=== PATIENT | female | born 1950 | race Hispanic/Latino ===

== ENCOUNTER → 2020-04-07 | Outpatient (CLI) | payer MEDICARE ==
[~2020-04-07] MED LIST: ASPIRIN81 MG PO; CALCIUM + VITA1 EACH PO; LISINOPRIL; LOSARTAN POTAS100 MG PO; LOSARTAN-HCTZ1 EAC2 PO
== END ==
LOC: NM 14:56
PROVIDERS: ATTEND Surgery
DX: Z01.818 Encounter for other preprocedural examination (principal); C50.912 Malignant neoplasm of unspecified site of left female breast
CPT/HCPCS: 78195; A9541

== ENCOUNTER 2020-04-08 05:51 | Observation (INO) | payer MEDICARE ==
[2020-04-05 08:57] LABS: BASOPHILS # (AUTO) 0.1 (0.0-0.1); BASOPHILS % 0.7 % (0.0-1.0); EOSINOPHILS # (AUTO) 0.2 (0.0-0.4); HEMATOCRIT 40.1 % (34.2-44.1); HEMOGLOBIN 13.2 g/dL (12.0-16.0); LYMPHOCYTES # (AUTO) 1.9 (1.0-3.2); LYMPHOCYTES % 27.5 % (18.0-39.1); MEAN CORPUSCULAR HEMOGLOBIN 30.6 pg (28-32); MEAN CORPUSCULAR HGB CONC 32.9 g/dL (31-35); MONOCYTES # (AUTO) 0.7 (0.2-0.8); MONOCYTES % 9.9 % (4.4-11.3); NEUTROPHILS # (AUTO) 4.1 (2.1-6.9); NEUTROPHILS % 58.6 % (38.7-80.0); PLATELET COUNT 274 x10e3/uL (140-360); RED BLOOD COUNT 4.31 x10e6/uL (3.6-5.1); RED CELL DISTRIBUTION WIDTH 12.9 % (11.7-14.4)
[2020-04-05 09:22] LABS: ANION GAP 12.4 mmol/L (8-16); BLOOD UREA NITROGEN 11 mg/dL (7-26); BUN/CREATININE RATIO 14 (6-25); CALCIUM 9.2 mg/dL (8.4-10.2); CARBON DIOXIDE 28 mmol/L (22-29); CHLORIDE 102 mmol/L (98-107); CREATININE, SERUM 0.76 mg/dL (0.57-1.11); EST GLOMERULAR FILTRATION RATE > 60 ML/MIN (60-); GLUCOSE 87 mg/dL (74-118); POTASSIUM 3.4 mmol/L (3.5-5.1); SODIUM 139 mmol/L (136-145)
[~2020-04-08] VITALS: Ht 30.5 cm; Wt 72.6 kg
[2020-04-08] MEDS ORDERED: BUPIVACAINE 0.25%/EPI 30ML SDV INJ ONE (07:25)
[2020-04-08] MEDS ORDERED: NEOSTIGMINE 1 MG/ML 10ML VIAL ONE (07:25)
[2020-04-08] MEDS ORDERED: VANCOMYCIN HCL 1 GM VIAL ONE (08:52)
[2020-04-08] MEDS ORDERED: ONDANSETRON HCL INJ 2MG/ML 2ML 2 MG/ML VIAL IV PRN (12:15)
[2020-04-08] MEDS ORDERED: HYDROCODONE/APAP 7.5MG-325MG 1 EA TAB PO PRN (12:15)
[2020-04-08] MEDS ORDERED: ONDANSETRON HCL INJ 2MG/ML 2ML 2 MG/ML VIAL ONE (12:47)
[2020-04-08] MEDS ORDERED: EPHEDRINE SULFATE INJ 50 MG/ML VIAL ONE (12:47)
[2020-04-08] MEDS ORDERED: SUCCINYLCHOLINE CHLORIDE 20 MG/ML 10ML VIAL ONE (12:47)
[2020-04-08] MEDS ORDERED: DEXAMETHASONE SOD PHOS INJ 4 MG/ML VIAL ONE (12:47)
[2020-04-08] MEDS ORDERED: LIDOCAINE HCL 2% LOCAL INJ 5 ML SDV VIAL INJ ONE (12:47)
[2020-04-08] MEDS ORDERED: PROPOFOL IV EMULSION 10 MG/ML 20 ML VIAL ONE (12:47)
[2020-04-08] MEDS ORDERED: SEVOFLURANE INHAL SOLN 250 ML PEN BTL ONE (12:47)
[2020-04-08 13:00] VITALS: BP 114/57
[2020-04-08 13:30] VITALS: BP 114/57
[2020-04-08] MEDS: DEXTROSE 5%/LACTATED RINGERS 1,000 ML IV SCH ×2 (15:00→23:37)
[2020-04-08 16:17] VITALS: BP 119/51
[2020-04-08] MEDS: HYDROMORPHONE 1MG/1ML INJ IV PRN ×2 (16:19→23:39)
[2020-04-08] MEDS: CEFAZOLIN SOD 1 GM/NS 50ML 50 ML IV SCH ×2 (17:35→23:37)
[2020-04-08 20:00] VITALS: BP 115/41
[2020-04-08 20:42] VITALS: BP 115/41
[2020-04-09] VITALS: BP 100/70
[2020-04-09 04:00] VITALS: BP 101/62
[2020-04-09 04:47] LABS: BASOPHILS % 0.2 % (0.0-1.0); EOSINOPHILS % 0.1 % (0.0-6.0); HEMATOCRIT 30.7 % (34.2-44.1); HEMOGLOBIN 10.4 g/dL (12.0-16.0); LYMPHOCYTES % 12.4 % (18.0-39.1); MEAN CORPUSCULAR HEMOGLOBIN 31.1 pg (28-32); MEAN CORPUSCULAR HGB CONC 33.9 g/dL (31-35); MEAN CORPUSCULAR VOLUME 91.9 fL (81-99); MONOCYTES # (AUTO) 1.7 (0.2-0.8); MONOCYTES % 10.5 % (4.4-11.3); NEUTROPHILS # (AUTO) 12.2 (2.1-6.9); NEUTROPHILS % 76.2 % (38.7-80.0); PLATELET COUNT 211 x10e3/uL (140-360); RED BLOOD COUNT 3.34 x10e6/uL (3.6-5.1); RED CELL DISTRIBUTION WIDTH 12.9 % (11.7-14.4)
[2020-04-09] MEDS: CEFAZOLIN SOD 1 GM/NS 50ML 50 ML IV SCH ×3 (05:00→16:03)
[2020-04-09 08:17] VITALS: BP 118/56
[2020-04-09 08:34] VITALS: BP 118/56
[2020-04-09] MEDS: DEXTROSE 5%/LACTATED RINGERS 1,000 ML IV SCH (08:59)
[2020-04-09 12:12] VITALS: BP 123/55
[2020-04-09 16:31] VITALS: BP 110/50
== END 2020-04-09 17:15 | disposition home or self-care (01) ==
LOC: OR 05:51 → PACU V 12:03 → MED/SURG 13:01
PROVIDERS: ADMIT Surgery; ATTEND Surgery
DX: C50.012 Malignant neoplasm of nipple and areola, left female breast (principal); Z20.822 Contact with and (suspected) exposure to COVID-19; I10 Essential (primary) hypertension
CPT/HCPCS: 36415; 71046; 80048; 85025; 88305; 88309; 93005; 96361; G0378; J0330; J0690; J1100; J1170; J2001; J2405; J2710; J3370; U0002